=== PATIENT | female | born 1940 | race Caucasian/White ===

== ENCOUNTER 2018-10-15 05:25 | Observation (INO) | payer OTHER ==
[~2018-10-15 05:25] MED LIST: BUPIVACAINE 0.5% (SDV) 30 ML, morphine SULFATE (PF) 8 MG, EPINEPHrine 0.3 MG, KETOROLAC... IRR
[2018-10-15] MEDS ORDERED: BUPIVACAINE 0.5% (SDV) 30 ML, morphine SULFATE (PF) 8 MG, EPINEPHrine 0.3 MG, KETOROLAC... IRR (06:00)
[2018-10-15] MEDS ORDERED: SOD CHLORIDE 0.9% 100 ML, TRANEXAMIC ACID 3,000 MG IRR (06:00)
[2018-10-15] MEDS: DEXAMETHASONE 1 MG TAB PO (06:29)
[2018-10-15] MEDS: GABAPENTIN 300 MG CAP PO ×2 (06:29→11:00)
[2018-10-15] MEDS: TRANEXAMIC ACID 1,000 MG in DEXTROSE 5% 100 ML IVPB (06:45)
[2018-10-15] MEDS ORDERED: BUPIVACAINE 0.5%/EPI (SDV) 30 ML INJ (06:50)
[2018-10-15] MEDS ORDERED: DEXAMETHASONE 4 MG/ML 1 ML INJ (07:00)
[2018-10-15] MEDS ORDERED: ONDANSETRON 4 MG INJ (07:00)
[2018-10-15] MEDS ORDERED: CEFAZOLIN 1 GM INJ (07:00)
[2018-10-15] MEDS ORDERED: LIDOCAINE 2% (SDV) 5 ML INJ (07:00)
[2018-10-15] MEDS ORDERED: PROPOFOL 20 ML (07:04)
[2018-10-15] MEDS: CEFAZOLIN 2 GM/50 ML (PMX) 50 ML IVPB (07:15)
[2018-10-15] MEDS: POLYMYXIN/BACITRACIN 1L IRRIG (07:41)
[2018-10-15] MEDS: CA CHLORIDE 10% 10 ML SYRINGE (07:42)
[2018-10-15] MEDS: THROMBIN 5000 UNIT VIAL (07:42)
[2018-10-15] MEDS ORDERED: RIZATRIPTAN BENZOATE 10 MG PO (08:30)
[2018-10-15] MEDS ORDERED: ZOLPIDEM 5 MG TAB PO (08:30)
[2018-10-15] MEDS ORDERED: HYDROmorphONE 1 MG/ML SYG IV (08:30)
[2018-10-15] MEDS ORDERED: MAGNESIUM HYDROXIDE 30ML CUP PO (08:30)
[2018-10-15] MEDS ORDERED: DIPHENHYDRAMINE 50 MG INJ IV ×2 (08:30→09:00)
[2018-10-15] MEDS ORDERED: NACL 0.9% 3 ML SYG IV (08:30)
[2018-10-15] MEDS ORDERED: ONDANSETRON 4 MG INJ IV ×2 (08:30→09:00)
[2018-10-15] MEDS ORDERED: GLYCOPYRROLATE 0.4 MG INJ (08:33)
[2018-10-15] MEDS ORDERED: NEOSTIGMINE 3 MG/3 ML SYRINGE (08:33)
[2018-10-15] MEDS ORDERED: METOCLOPRAMIDE 10 MG INJ IV (09:00)
[2018-10-15] MEDS ORDERED: hydrALAzine 20 MG INJ IV (09:00)
[2018-10-15] MEDS ORDERED: ALBUTEROL 0.083% (NEB) 2.5 MG/3 ML AMP HHN (09:00)
[2018-10-15] MEDS ORDERED: HYDROmorphONE 1 MG/5 ML IV SYRINGE IV ×3 (09:00→09:12)
[2018-10-15] MEDS ORDERED: LABETALOL HCL 20MG INJ IV (09:00)
[2018-10-15] MEDS ORDERED: TOPIRAMATE SPRINKLE 25 MG CAP PO (09:00)
[2018-10-15] MEDS ORDERED: FENTAnyl 50 MCG/ML VIAL IV ×2 (09:00)
[2018-10-15] MEDS ORDERED: MEPERIDINE 25 MG INJ IV (09:00)
[2018-10-15] MEDS ORDERED: OXYCODONE/ACETAMINOPHEN (5/325) TAB PO ×2 (09:00)
[2018-10-15] MEDS ORDERED: EPHEDrine SULFATE 50 MG/5 ML SYG IV (09:00)
[2018-10-15] MEDS: ACETAMINOPHEN 1000MG/100ML IV 100 ML IVPB ×3 (09:10→17:08)
[2018-10-15] MEDS ORDERED: FENTAnyl 50 MCG/ML VIAL (09:11)
[2018-10-15] MEDS: FENTAnyl 50 MCG/ML VIAL IV (09:20)
[2018-10-15] MEDS: HYDROmorphONE 1 MG/5 ML IV SYRINGE IV (09:21)
[2018-10-15] MEDS: KETOROLAC 30 MG INJ IV (09:26)
[2018-10-15] MEDS: RALOXIFENE 60 MG TAB PO (11:00)
[2018-10-15] MEDS: LACTATED RINGER'S 1,000 ML IV ×3 (11:08→21:26)
[2018-10-15] MEDS ORDERED: oxyCODONE 5 MG TAB PO (13:00)
[2018-10-15] MEDS: DEXAMETHASONE 2 MG TAB PO ×3 (13:14→23:20)
[2018-10-15] MEDS: SENNA/DOCUSATE NA (8.6MG/50MG) TAB PO ×2 (13:14→21:38)
[2018-10-15] MEDS: PANTOPRAZOLE (EC) 40 MG TAB PO (13:14)
[2018-10-15] MEDS: oxyCODONE 5 MG TAB PO (14:55)
[2018-10-15] MEDS: CEFAZOLIN 1 GM/50 ML (PMX) 50 ML IVPB ×2 (14:56→23:15)
[2018-10-15] MEDS: TOPIRAMATE SPRINKLE 25 MG CAP PO (21:37)
[2018-10-15] MEDS: ATORVASTATIN 10 MG TAB PO (21:38)
[2018-10-16] MEDS: oxyCODONE 5 MG TAB PO ×2 (00:22→10:21)
[2018-10-16] MEDS: ACETAMINOPHEN 1000MG/100ML IV 100 ML IVPB (00:24)
[2018-10-16] MEDS: DEXAMETHASONE 2 MG TAB PO (05:21)
[2018-10-16] MEDS: CEFAZOLIN 1 GM/50 ML (PMX) 50 ML IVPB (06:28)
[2018-10-16] MEDS: GABAPENTIN 300 MG CAP PO (08:45)
[2018-10-16] MEDS: SENNA/DOCUSATE NA (8.6MG/50MG) TAB PO (08:45)
[2018-10-16] MEDS: ASPIRIN (EC) 325 MG TAB PO (08:45)
[2018-10-16] MEDS: PANTOPRAZOLE (EC) 40 MG TAB PO (08:45)
[2018-10-16] MEDS: RALOXIFENE 60 MG TAB PO (08:45)
[2018-10-17] MEDS ORDERED: MAGNESIUM HYDROXIDE 30ML CUP PO (21:00)
== END 2018-10-16 10:31 | disposition home or self-care (01) ==
LOC: SDS 05:25 → REC 08:09 → MS1 09:35
DX: S76.312A Strain of muscle, fascia and tendon of the posterior muscle group at thigh level, left thigh, initial encounter (principal); M70.72 Other bursitis of hip, left hip; G57.02 Lesion of sciatic nerve, left lower limb; X58.XXXA Exposure to other specified factors, initial encounter; Y93.02 Activity, running
CPT/HCPCS: 27060; 72170; 86999; 97161